=== PATIENT | male | born 1970 | race African-American/Black ===

== ENCOUNTER 2018-02-05 15:10 | Inpatient (IN) | payer MEDICAID, OTHER ==
[~2018-02-05] VITALS: Ht 188 cm; Wt 103.3 kg
[2018-02-05] MEDS ORDERED: cloNIDine HCL 0.1 MG TAB PO ONE (15:30)
[2018-02-05] MEDS ORDERED: SODIUM CHLORIDE 0.9% 1,000 ML IV ONE ×2 (15:54→16:15)
[2018-02-05 16:18] LABS: Basophils # (auto) 0.1 uL; Basophils % (auto) 0.6 % (0.0-2.0); Eosinophils # (auto) 0.1 uL; Eosinophils % (auto) 0.6 % (0.0-7.0); Hematocrit 43.8 % (41.0-53.0); Hemoglobin 14.6 g/dL (13.5-17.5); Lymphocytes # (auto) 1.9 uL; Lymphocytes % (auto) 15.3 % (10.0-50.0); Mean Corpuscular Hemoglobin 30.6 pg (28.0-32.0); Mean Corpuscular Hgb Conc. 33.4 g/dL (32.0-36.0); Mean Corpuscular Volume 91.7 fL (80.0-100.0); Monocytes # (auto) 0.6 uL; Monocytes % (auto) 5.1 % (0.0-12.0); Neutrophils # (auto) 9.7 uL; Neutrophils % (auto) 78.4 % (37.0-80.0); Platelet Count (auto) 244 10^3/uL (140-450); Red Blood Cells 4.77 10^6/uL (4.5-5.90); Red Cell Distribution Width 14.9 % (11.8-14.3); White Blood Cell 12.4 10^3/uL (4.4-10.8)
[2018-02-05 16:45] LABS: Albumin 3.3 g/dL (3.4-5.0); BUN/Creatinine Ratio 16.1; Bilirubin, Total 1.8 mg/dL (0.2-1.0); Calcium 8.2 mg/dL (8.5-10.1); Potassium 3.3 mmol/L (3.5-5.1)
[2018-02-05] MEDS ORDERED: LABETALOL HCL 5 MG/ML ML 20ML VIAL IV ONE ×4 (17:45→22:00)
[2018-02-05] MEDS ORDERED: FUROSEMIDE 40 MG/4 ML VIAL IV ONE (18:15)
[2018-02-05] MEDS ORDERED: SPIRONOLACTONE 25 MG TAB PO ONE (18:15)
[2018-02-05] MEDS ORDERED: MORPHINE SULF INJ 2 MG/ML SYRINGE 1ML IV PRN ×2 (19:00)
[2018-02-05] MEDS ORDERED: LACTULOSE 20Gm/30ML SOLN PO PRN (19:00)
[2018-02-05] MEDS ORDERED: LORazepam 0.5 MG TAB PO PRN (19:00)
[2018-02-05] MEDS: FUROSEMIDE 40 MG/4 ML VIAL IV SCH (19:00)
[2018-02-05] MEDS ORDERED: HYDROcodone-ACET 5/325MG TAB PO PRN (19:00)
[2018-02-05] MEDS ORDERED: PROMETHAZINE HCL 25 MG/ML 1ML IV PRN (19:00)
[2018-02-05] MEDS ORDERED: ACETAMINOPHEN 500 MG TAB PO PRN (19:00)
[2018-02-05] MEDS ORDERED: TEMAZEPAM 15 MG CAP PO PRN (19:00)
[2018-02-05] MEDS ORDERED: NITROGLYCERIN 50MG/250ML 250 ML IV SCH (20:15)
[2018-02-05] MEDS: POTASSIUM CHL 20 Meq TABLET PO SCH (20:25)
[2018-02-05] MEDS: ATORVASTATIN 20 MG TAB PO SCH (22:14)
[2018-02-05] MEDS: CARVEDILOL 3.125 MG TAB PO SCH (22:15)
[2018-02-05] MEDS: SODIUM CHLOR 0.9% PF (SALINE LOCK) 10ML VIAL/SYR IV SCH (22:17)
[2018-02-05] MEDS ORDERED: cloNIDine HCL 0.1 MG TAB PO PRN (23:30)
[2018-02-06] VITALS (7 sets, daily range): BP systolic 120–148; BP diastolic 85–107
[2018-02-06] MEDS ORDERED: FURO20TA PO (02:14)
[2018-02-06] MEDS ORDERED: ASPI81TA27 PO (02:14)
[2018-02-06] MEDS ORDERED: ENAL2.5T PO (02:14)
[2018-02-06 06:27] LABS: Basophils # (auto) 0 uL; Basophils % (auto) 0.4 % (0.0-2.0); Eosinophils # (auto) 0 uL; Eosinophils % (auto) 0.4 % (0.0-7.0); Hematocrit 40.1 % (41.0-53.0); Hemoglobin 13.8 g/dL (13.5-17.5); Lymphocytes # (auto) 1.4 uL; Lymphocytes % (auto) 12.5 % (10.0-50.0); Mean Corpuscular Hemoglobin 31.6 pg (28.0-32.0); Mean Corpuscular Hgb Conc. 34.5 g/dL (32.0-36.0); Mean Corpuscular Volume 91.5 fL (80.0-100.0); Monocytes # (auto) 0.5 uL; Neutrophils # (auto) 8.9 uL; Neutrophils % (auto) 81.7 % (37.0-80.0); Nucleated Red Blood Cells % 0.1 %; Platelet Count (auto) 215 10^3/uL (140-450); Red Blood Cells 4.38 10^6/uL (4.5-5.90); Red Cell Distribution Width 14.8 % (11.8-14.3); White Blood Cell 10.9 10^3/uL (4.4-10.8)
[2018-02-06] MEDS: SODIUM CHLOR 0.9% PF (SALINE LOCK) 10ML VIAL/SYR IV SCH ×3 (06:39→22:07)
[2018-02-06 06:44] LABS: Potassium 3.3 mmol/L (3.5-5.1)
[2018-02-06 06:51] LABS: Albumin 2.8 g/dL (3.4-5.0); BUN/Creatinine Ratio 15.1; Calcium 8.2 mg/dL (8.5-10.1)
[2018-02-06 06:54] LABS: Bilirubin, Total 1.7 mg/dL (0.2-1.0); Total Protein 6.8 g/dL (6.4-8.2)
[2018-02-06] MEDS ORDERED: ENALAPRIL MALEATE 2.5 MG TAB PO SCH ×2 (10:00→22:00)
[2018-02-06] MEDS ORDERED: NITROGLYCERIN 0.2MG/HR TOPICAL PATCH TD SCH (10:00)
[2018-02-06] MEDS: FUROSEMIDE 40 MG/4 ML VIAL IV SCH (10:51)
[2018-02-06] MEDS: PANTOPRAZOLE 40 MG TAB PO SCH (10:51)
[2018-02-06] MEDS: CARVEDILOL 3.125 MG TAB PO SCH ×2 (10:52→22:10)
[2018-02-06] MEDS: POTASSIUM CHL 20 Meq TABLET PO SCH (10:52)
[2018-02-06] MEDS: ASPirin 81 mg TAB PO SCH (10:52)
[2018-02-06] MEDS: ENOXAPARIN SOD 40 MG/0.4 ML SYRINGE SC SCH (10:53)
[2018-02-06 14:11] LABS: Urine Bacteria FEW /hpf (None Seen); Urine Blood Negative /uL (Negative); Urine Mucus FEW (None Seen); Urine WBC 1 /hpf (0 - 3)
[2018-02-06 14:14] LABS: Amphetamine Screen, Urine NEGATIVE (NEGATIVE); Barbiturate Scree,Urine NEGATIVE (NEGATIVE); Benzodiazephine Screen, Urine NEGATIVE (NEGATIVE); Cannabinoid Screen, Urine POSITIVE (NEGATIVE); Cocaine Screen, Urine NEGATIVE (NEGATIVE)
[2018-02-06 14:21] LABS: Alcohol, Urine < 3.0 mg/dL (0-5); Opiate Scree,Urine NEGATIVE (NEGATIVE); Phencyclidine Screen, Urine NEGATIVE (NEGATIVE)
[2018-02-06] MEDS ORDERED: hydrALAZINE HCL 25 MG TAB PO ONE (14:30)
[2018-02-06] MEDS ORDERED: ISOSORBIDE DINITRATE 10 MG TAB PO ONE (14:30)
[2018-02-06] MEDS: NITROGLYCERIN 0.4 MG SL TAB SL PRN ×3 (18:13→18:25)
[2018-02-06] MEDS: SPIRONOLACTONE 25 MG TAB PO SCH (18:25)
[2018-02-06] MEDS ORDERED: LORazepam 0.5 MG TAB PO ONE (20:15)
[2018-02-06] MEDS: ISOSORBIDE DINITRATE 10 MG TAB PO SCH (22:09)
[2018-02-06] MEDS: hydrALAZINE HCL 25 MG TAB PO SCH (22:10)
[2018-02-06] MEDS: ATORVASTATIN 20 MG TAB PO SCH (22:12)
[2018-02-07 05:00] VITALS: BP 139/96
[2018-02-07] MEDS: SPIRONOLACTONE 25 MG TAB PO SCH ×2 (05:33→18:46)
[2018-02-07] MEDS: SODIUM CHLOR 0.9% PF (SALINE LOCK) 10ML VIAL/SYR IV SCH ×3 (05:33→20:21)
[2018-02-07 06:36] LABS: Potassium 3.1 mmol/L (3.5-5.1)
[2018-02-07 06:40] LABS: BUN/Creatinine Ratio 17.9
[2018-02-07 07:32] LABS: INR 1.15 (0.9-1.15); Partial Thromboplastin Time 26.1 sec (23.78-33.04); Prothrombin Time 12.2 sec (9.27-12.13)
[2018-02-07] MEDS ORDERED: ADENOSINE 105 MG in GIVE UN-DILUTED 0 ML IV ONE (08:15)
[2018-02-07 09:07] VITALS: BP 147/109
[2018-02-07] MEDS: ISOSORBIDE DINITRATE 10 MG TAB PO SCH ×2 (10:33→21:22)
[2018-02-07] MEDS: ASPirin 81 mg TAB PO SCH (10:33)
[2018-02-07] MEDS: hydrALAZINE HCL 25 MG TAB PO SCH ×2 (10:34→21:21)
[2018-02-07] MEDS: PANTOPRAZOLE 40 MG TAB PO SCH (10:34)
[2018-02-07] MEDS: POTASSIUM CHL 20 Meq TABLET PO SCH (10:34)
[2018-02-07] MEDS: ENOXAPARIN SOD 40 MG/0.4 ML SYRINGE SC SCH (10:35)
[2018-02-07] MEDS: CARVEDILOL 3.125 MG TAB PO SCH ×2 (10:35→21:24)
[2018-02-07 10:44] VITALS: BP 139/103
[2018-02-07] MEDS: FUROSEMIDE 40 MG/4 ML VIAL IV SCH (12:19)
[2018-02-07 13:00] VITALS: BP 133/93
[2018-02-07 17:00] VITALS: BP 119/73
[2018-02-07] MEDS: ATORVASTATIN 20 MG TAB PO SCH (21:22)
[2018-02-07 21:59] VITALS: BP 130/79
[2018-02-08] MEDS ORDERED: SODIUM CHLORIDE 0.9% 1,000 ML IV SCH
[2018-02-08 05:00] VITALS: BP 132/86
[2018-02-08] MEDS: SPIRONOLACTONE 25 MG TAB PO SCH ×2 (06:00→17:56)
[2018-02-08] MEDS: SODIUM CHLOR 0.9% PF (SALINE LOCK) 10ML VIAL/SYR IV SCH ×3 (06:00→21:51)
[2018-02-08 06:03] LABS: BUN/Creatinine Ratio 16.7; Calcium 8.2 mg/dL (8.5-10.1); Potassium 3.2 mmol/L (3.5-5.1)
[2018-02-08 09:00] VITALS: BP 133/93
[2018-02-08] MEDS: POTASSIUM CHL 20 Meq TABLET PO SCH (10:02)
[2018-02-08] MEDS: PANTOPRAZOLE 40 MG TAB PO SCH (10:02)
[2018-02-08] MEDS: ENOXAPARIN SOD 40 MG/0.4 ML SYRINGE SC SCH (10:02)
[2018-02-08] MEDS: FUROSEMIDE 40 MG/4 ML VIAL IV SCH (10:02)
[2018-02-08] MEDS: ISOSORBIDE DINITRATE 10 MG TAB PO SCH ×2 (10:03→21:50)
[2018-02-08] MEDS: ASPirin 81 mg TAB PO SCH (10:03)
[2018-02-08] MEDS: hydrALAZINE HCL 25 MG TAB PO SCH ×2 (10:03→21:50)
[2018-02-08] MEDS: CARVEDILOL 3.125 MG TAB PO SCH ×2 (10:04→21:49)
[2018-02-08 13:00] VITALS: BP 109/65
[2018-02-08] MEDS ORDERED: POTASSIUM CHL 10 Meq TABLET PO ONE (15:15)
[2018-02-08 17:00] VITALS: BP 126/86
[2018-02-08 20:00] VITALS: BP 155/74
[2018-02-08] MEDS: ATORVASTATIN 20 MG TAB PO SCH (21:50)
[2018-02-08 22:00] VITALS: BP 155/74
[2018-02-09] VITALS (7 sets, daily range): BP systolic 109–134; BP diastolic 64–99
[2018-02-09] MEDS: SODIUM CHLOR 0.9% PF (SALINE LOCK) 10ML VIAL/SYR IV SCH ×3 (05:52→22:03)
[2018-02-09] MEDS: SPIRONOLACTONE 25 MG TAB PO SCH ×2 (05:52→17:48)
[2018-02-09 06:38] LABS: Basophils # (auto) 0.1 uL; Basophils % (auto) 0.6 % (0.0-2.0); Eosinophils # (auto) 0.1 uL; Eosinophils % (auto) 1.2 % (0.0-7.0); Hematocrit 41.7 % (41.0-53.0); Lymphocytes # (auto) 1.6 uL; Lymphocytes % (auto) 13.9 % (10.0-50.0); Mean Corpuscular Hemoglobin 30.5 pg (28.0-32.0); Mean Corpuscular Hgb Conc. 33.5 g/dL (32.0-36.0); Mean Corpuscular Volume 90.8 fL (80.0-100.0); Monocytes % (auto) 9.2 % (0.0-12.0); Neutrophils # (auto) 8.5 uL; Neutrophils % (auto) 75.1 % (37.0-80.0); Nucleated Red Blood Cells % 0.1 %; Platelet Count (auto) 249 10^3/uL (140-450); Red Blood Cells 4.59 10^6/uL (4.5-5.90); Red Cell Distribution Width 14.7 % (11.8-14.3); White Blood Cell 11.3 10^3/uL (4.4-10.8)
[2018-02-09] MEDS: FUROSEMIDE 40 MG/4 ML VIAL IV SCH (09:12)
[2018-02-09] MEDS: CARVEDILOL 3.125 MG TAB PO SCH ×2 (09:13→22:02)
[2018-02-09] MEDS: ASPirin 81 mg TAB PO SCH (09:13)
[2018-02-09] MEDS: POTASSIUM CHL 20 Meq TABLET PO SCH (09:13)
[2018-02-09] MEDS: ISOSORBIDE DINITRATE 10 MG TAB PO SCH ×2 (09:13→22:02)
[2018-02-09] MEDS: PANTOPRAZOLE 40 MG TAB PO SCH (09:13)
[2018-02-09] MEDS: hydrALAZINE HCL 25 MG TAB PO SCH ×2 (09:14→22:03)
[2018-02-09] MEDS ORDERED: POTASSIUM CHL 10 Meq TABLET PO ONE (18:30)
[2018-02-09] MEDS: ATORVASTATIN 20 MG TAB PO SCH (22:03)
[2018-02-10] MEDS: SODIUM CHLOR 0.9% PF (SALINE LOCK) 10ML VIAL/SYR IV SCH ×3 (06:00→22:04)
[2018-02-10] MEDS: SPIRONOLACTONE 25 MG TAB PO SCH ×2 (06:00→17:29)
[2018-02-10 06:03] VITALS: BP 110/73
[2018-02-10 08:30] VITALS: BP 138/92
[2018-02-10 09:00] VITALS: BP 138/92
[2018-02-10 09:00] LABS: INR 1.07 (0.9-1.15); Partial Thromboplastin Time 26.3 sec (23.78-33.04); Prothrombin Time 11.4 sec (9.27-12.13)
[2018-02-10] MEDS: hydrALAZINE HCL 25 MG TAB PO SCH ×2 (10:00→22:03)
[2018-02-10] MEDS: CARVEDILOL 3.125 MG TAB PO SCH ×2 (10:00→22:04)
[2018-02-10] MEDS: ASPirin 81 mg TAB PO SCH (10:00)
[2018-02-10] MEDS: PANTOPRAZOLE 40 MG TAB PO SCH ×2 (10:00→17:28)
[2018-02-10] MEDS: ISOSORBIDE DINITRATE 10 MG TAB PO SCH ×2 (10:00→22:03)
[2018-02-10] MEDS ORDERED: IODIXANOL 320MG/ML 100ML BTL IV ONE (11:30)
[2018-02-10] MEDS ORDERED: LIDOCAINE 2% (LOCAL ANESTH.) PF 5ml SDV ONE (11:30)
[2018-02-10] MEDS ORDERED: MIDAZOLAM HCL 1MG/1ML-2 ML VIAL ONE (13:12)
[2018-02-10] MEDS ORDERED: SODIUM CHL 0.9% 0 ML ONE (13:12)
[2018-02-10] MEDS ORDERED: fentaNYL CITRATE 100 MCG/2 ML VL ONE (13:12)
[2018-02-10] MEDS ORDERED: ANGIOMAX 250 MG VIAL IV ONE (13:15)
[2018-02-10] MEDS ORDERED: hydrALAZINE HCL 20 MG/ML VL ONE (13:36)
[2018-02-10] MEDS ORDERED: POTA20TA53 PO (14:58)
[2018-02-10] MEDS ORDERED: FURO40TA4 PO (14:58)
[2018-02-10] MEDS ORDERED: ISOS10TA2 PO (14:58)
[2018-02-10] MEDS ORDERED: ATOR20TA50 PO (14:58)
[2018-02-10] MEDS ORDERED: PANT40T PO (14:58)
[2018-02-10] MEDS ORDERED: CAR3125T PO (14:58)
[2018-02-10] MEDS ORDERED: HYDR-4296 PO (14:58)
[2018-02-10] MEDS ORDERED: SPIR25TA88 PO (14:58)
[2018-02-10] MEDS: FUROSEMIDE 40 MG/4 ML VIAL IV SCH (15:22)
[2018-02-10 16:53] VITALS: BP 145/98
[2018-02-10] MEDS: POTASSIUM CHL 20 Meq TABLET PO SCH (17:28)
[2018-02-10 20:00] VITALS: BP 145/82
[2018-02-10 21:33] VITALS: BP 145/82
[2018-02-10] MEDS: ATORVASTATIN 20 MG TAB PO SCH (22:03)
[2018-02-11] VITALS (8 sets, daily range): BP systolic 120–141; BP diastolic 71–94
[2018-02-11] MEDS: SODIUM CHLOR 0.9% PF (SALINE LOCK) 10ML VIAL/SYR IV SCH ×3 (06:02→21:48)
[2018-02-11] MEDS: SPIRONOLACTONE 25 MG TAB PO SCH ×2 (06:03→17:07)
[2018-02-11 06:15] LABS: BUN/Creatinine Ratio 15.2; Calcium 8.6 mg/dL (8.5-10.1); Potassium 3.4 mmol/L (3.5-5.1)
[2018-02-11] MEDS: ISOSORBIDE DINITRATE 10 MG TAB PO SCH ×2 (10:00→21:47)
[2018-02-11] MEDS: POTASSIUM CHL 20 Meq TABLET PO SCH (10:00)
[2018-02-11] MEDS: FUROSEMIDE 40 MG/4 ML VIAL IV SCH (10:00)
[2018-02-11] MEDS: PANTOPRAZOLE 40 MG TAB PO SCH (10:00)
[2018-02-11] MEDS: hydrALAZINE HCL 25 MG TAB PO SCH ×2 (10:00→21:47)
[2018-02-11] MEDS: CARVEDILOL 3.125 MG TAB PO SCH ×2 (10:00→21:47)
[2018-02-11] MEDS: ASPirin 81 mg TAB PO SCH (10:00)
[2018-02-11] MEDS: ATORVASTATIN 20 MG TAB PO SCH (21:46)
[2018-02-12] VITALS (7 sets, daily range): BP systolic 108–141; BP diastolic 71–94
[2018-02-12] MEDS: SODIUM CHLOR 0.9% PF (SALINE LOCK) 10ML VIAL/SYR IV SCH ×2 (06:00→14:45)
[2018-02-12] MEDS: SPIRONOLACTONE 25 MG TAB PO SCH ×2 (06:01→17:36)
[2018-02-12] MEDS: FUROSEMIDE 40 MG/4 ML VIAL IV SCH (09:43)
[2018-02-12] MEDS: ISOSORBIDE DINITRATE 10 MG TAB PO SCH (09:44)
[2018-02-12] MEDS: hydrALAZINE HCL 25 MG TAB PO SCH (09:45)
[2018-02-12] MEDS: PANTOPRAZOLE 40 MG TAB PO SCH (09:45)
[2018-02-12] MEDS: ASPirin 81 mg TAB PO SCH (09:45)
[2018-02-12] MEDS: POTASSIUM CHL 20 Meq TABLET PO SCH (09:45)
[2018-02-12] MEDS: CARVEDILOL 3.125 MG TAB PO SCH (09:45)
[2018-02-12 11:59] LABS: Calcium 8.4 mg/dL (8.5-10.1); Potassium 3.4 mmol/L (3.5-5.1)
[2018-02-12] MEDS ORDERED: POTASSIUM CHL 10 Meq TABLET PO ONE (13:15)
== END 2018-02-12 21:25 | disposition home or self-care (01) | DRG 192 ==
LOC: EDBD 15:10 → ER 15:16 → TELE 15:17 → TELE-WESTW 23:25
PROVIDERS: ADMIT Internal Medicine; ATTEND Internal Medicine
PROC: 4A023N7 Measurement of Cardiac Sampling and Pressure, Left Heart, Percutaneous Approach (ICD-10-PCS; principal; 2018-02-10)
PROC: B2151ZZ Fluoroscopy of Left Heart using Low Osmolar Contrast (ICD-10-PCS; 2018-02-10)
PROC: B2111ZZ Fluoroscopy of Multiple Coronary Arteries using Low Osmolar Contrast (ICD-10-PCS; 2018-02-10)
DX: I13.0 Hypertensive heart and chronic kidney disease with heart failure and stage 1 through stage 4 chronic kidney disease, or unspecified chronic kidney disease (principal); I21.A1 Myocardial infarction type 2; I42.9 Cardiomyopathy, unspecified; N18.3 Chronic kidney disease, stage 3 (moderate); E44.1 Mild protein-calorie malnutrition; I50.43 Acute on chronic combined systolic (congestive) and diastolic (congestive) heart failure; E87.6 Hypokalemia; I16.1 Hypertensive emergency; I50.82 Biventricular heart failure; Z68.29 Body mass index [BMI] 29.0-29.9, adult; E66.9 Obesity, unspecified; F12.10 Cannabis abuse, uncomplicated; I16.0 Hypertensive urgency; I49.9 Cardiac arrhythmia, unspecified; Z87.891 Personal history of nicotine dependence; Z91.19 Patient's noncompliance with other medical treatment and regimen
CPT/HCPCS: 36415; 71045; 78452; 80048; 80053; 80061; 80307; 81001; 82550; 83735; 83880; 84132; 84443; 84484; 85025; 85610; 85652; 85730; 86141; 86850; 86900; 86901; 93017; 93306; 93458; 93971; 96361; 96374; 96375; 96376; 99152; A6257; J0153; J2001; J2250; Q9967

== ENCOUNTER 2018-10-13 12:52 | Inpatient (IN) | payer OTHER ==
[~2018-10-13] VITALS: Ht 182.9 cm; Wt 107.3 kg
[~2018-10-13 12:52] MED LIST: ASPI81TA27 PO; ATOR20TA50 PO; CAR3125T PO; ENAL2.5T PO; FURO20TA PO; FURO40TA4 PO; HYDR-4296 PO; ISOS10TA2 PO; PANT40T PO; POTA20TA53 PO; SPIR25TA88 PO
[2018-10-13 13:45] LABS: Basophils # (auto) 0 uL; Basophils % (auto) 0.3 % (0.0-2.0); Eosinophils # (auto) 0 uL; Eosinophils % (auto) 0.2 % (0.0-7.0); Hematocrit 44.9 % (41.0-53.0); Hemoglobin 15.3 g/dL (13.5-17.5); Lymphocytes # (auto) 1.2 uL; Lymphocytes % (auto) 8.8 % (10.0-50.0); Mean Corpuscular Hemoglobin 32.1 pg (28.0-32.0); Mean Corpuscular Hgb Conc. 34.1 g/dL (32.0-36.0); Mean Corpuscular Volume 94.1 fL (80.0-100.0); Monocytes # (auto) 0.5 uL; Neutrophils # (auto) 11.9 uL; Neutrophils % (auto) 86.7 % (37.0-80.0); Nucleated Red Blood Cells % 0.1 %; Platelet Count (auto) 271 10^3/uL (140-450); Red Blood Cells 4.77 10^6/uL (4.5-5.90); Red Cell Distribution Width 13.6 % (11.8-14.3); White Blood Cell 13.7 10^3/uL (4.4-10.8)
[2018-10-13 13:48] LABS: Urine Bacteria NONE SEEN /hpf (None Seen); Urine Blood TRACE /uL (Negative); Urine Specific Gravity 1.015 (1.001-1.035); Urine WBC 10 /hpf (0 - 3)
[2018-10-13 14:03] LABS: Magnesium 1.9 mg/dL (1.6-2.6)
[2018-10-13 14:06] LABS: BUN/Creatinine Ratio 11.4
[2018-10-13 14:09] LABS: Bilirubin, Total 0.5 mg/dL (0.2-1.0); Total Protein 8.8 g/dL (6.4-8.2)
[2018-10-13] MEDS ORDERED: PROCHLORPERAZINE EDISYLATE 5 MG/ML 2ML VIAL IV ONE (14:15)
[2018-10-13] MEDS ORDERED: ENALAPRILAT 1.25 MG/ML-1ML VIAL IV ONE (14:45)
[2018-10-13] MEDS ORDERED: ACETAMINOPHEN 500 MG TAB PO PRN (14:45)
[2018-10-13] MEDS ORDERED: MORPHINE SULF INJ 2 MG/ML SYRINGE 1ML IV PRN ×2 (14:45)
[2018-10-13] MEDS ORDERED: NITROGLYCERIN 0.4 MG SL TAB SL PRN (14:45)
[2018-10-13] MEDS ORDERED: CARVEDILOL 3.125 MG TAB PO ONE (14:45)
[2018-10-13] MEDS ORDERED: POTASSIUM EFFERVESENT TAB 25 MEQ PO ONE (15:00)
[2018-10-13 15:24] LABS: Alcohol, Urine < 3.0 mg/dL (0-5); Amphetamine Screen, Urine NEGATIVE (NEGATIVE); Barbiturate Scree,Urine NEGATIVE (NEGATIVE); Benzodiazephine Screen, Urine NEGATIVE (NEGATIVE); Cannabinoid Screen, Urine POSITIVE (NEGATIVE); Cocaine Screen, Urine NEGATIVE (NEGATIVE); Opiate Scree,Urine NEGATIVE (NEGATIVE); Phencyclidine Screen, Urine NEGATIVE (NEGATIVE)
--- NOTE | 2018-10-13 16:00 | NUR ---
ASSUMED CARE OF PATIENT PATIENT AWAKE, ALERT, AND ORIENTED X4; TELE # 15 IN NSR 93 BPM. RESPIRATIONS EVEN AND UNLABORED. NO S/S OF DISTRESS OR SOB, DENIES PAIN AT THIS TIME. PATIENT IS FATIGUED. AT BEDSIDE. ORIENTED PATIENT AND FAMILY TO ROOM, UNIT, POLICIES, AND PROCEDURES. PATIENT AND FAMILY VERBALIZED UNDERSTANDING. BED IS IN LOWEST POSITION, SIDE RAILS UP X2, AND CALL LIGHT WITHIN REACH. WILL CONTINUE TO MONITOR Q1 HOUR AND PRN.
[2018-10-13 16:03] VITALS: BP 179/95
[2018-10-13] MEDS: metroNIDAZOLE 500MG/100ML 100 ML IV SCH ×2 (17:13→20:38)
[2018-10-13] MEDS: SPIRONOLACTONE 25 MG TAB PO SCH (18:36)
--- NOTE | 2018-10-13 18:47 | NUR ---
END OF SHIFT PATIENT RESTING IN BED. NO S/S OF DISTRESS, SOB, OR PAIN. BED IS IN LOWEST POSITION, SIDE RAILS UP X2, AND CALL LIGHT WITHIN REACH. WILL ENDORSE CARE TO [employer]LECT[employer] MECHANIC TO R.N
--- NOTE | 2018-10-13 19:30 | NUR ---
RECEIVED PATIENT IN BED, AAOX4. FAMILY IS IN THE ROOM. PATIENT IS VERY ANXIOUS, RESTLESS. NO DISTRESS NOTED. AFEBRILE. DENIES ANY PAIN NOW. NO NAUSEA/ VOMITING NOTED. POCS DISCUSSED WITH PATIENT AND FAMILY AND SHOWED UNDERSTANDING. BED KEPT ON LOWEST POSITION. SIDE RAILS UP. CALL LIGHT/TABLE IN REACH. KEPT COMFORTABLE.
--- NOTE | 2018-10-13 20:00 | NUR ---
DOMINICK SMITH, RE: SLEEPING PILL. AWAITING CALL BACK.
[2018-10-13] MEDS ORDERED: TEMAZEPAM 15 MG CAP PO ONE (20:30)
[2018-10-13] MEDS: cloNIDine HCL 0.1 MG TAB PO PRN (20:38)
[2018-10-13] MEDS: CARVEDILOL 12.5 MG TAB PO SCH (20:39)
[2018-10-13] MEDS: ENALAPRIL MALEATE 10 MG TAB PO SCH (20:40)
[2018-10-13] MEDS: ATORVASTATIN 20 MG TAB PO SCH (20:40)
[2018-10-13 22:00] VITALS: BP 165/80
[2018-10-13] MEDS ORDERED: CARVEDILOL 3.125 MG TAB PO SCH (22:00)
[2018-10-13 23:27] VITALS: BP 117/85
[2018-10-14] MEDS: metroNIDAZOLE 500MG/100ML 100 ML IV SCH ×4 (02:17→22:26)
[2018-10-14] MEDS: HYDROcodone-ACET 5/325MG TAB PO PRN (03:00)
[2018-10-14 05:16] VITALS: BP 167/99
[2018-10-14] MEDS: SPIRONOLACTONE 25 MG TAB PO SCH ×2 (05:26→18:11)
[2018-10-14] MEDS: cloNIDine HCL 0.1 MG TAB PO PRN (05:27)
[2018-10-14 06:08] LABS: Basophils # (auto) 0 uL; Basophils % (auto) 0.2 % (0.0-2.0); Eosinophils # (auto) 0 uL; Hematocrit 49.8 % (41.0-53.0); Lymphocytes % (auto) 4.6 % (10.0-50.0); Mean Corpuscular Hemoglobin 31.8 pg (28.0-32.0); Mean Corpuscular Hgb Conc. 34.2 g/dL (32.0-36.0); Mean Corpuscular Volume 93.1 fL (80.0-100.0); Monocytes # (auto) 0.9 uL; Neutrophils # (auto) 19.8 uL; Neutrophils % (auto) 91.2 % (37.0-80.0); Nucleated Red Blood Cells % 0.1 %; Platelet Count (auto) 326 10^3/uL (140-450); Red Blood Cells 5.36 10^6/uL (4.5-5.90); Red Cell Distribution Width 13.4 % (11.8-14.3); White Blood Cell 21.8 10^3/uL (4.4-10.8)
[2018-10-14 06:11] VITALS: BP 148/72
--- NOTE | 2018-10-14 06:12 | NUR ---
ON BED, ASLEEP. STABLE. NO DISTRESS NOTED. FOR MORE CARE AND MANAGEMENT.
[2018-10-14 06:24] LABS: INR 0.96 (0.9-1.15); Partial Thromboplastin Time 27.2 sec (23.78-33.04); Prothrombin Time 10.3 sec (9.27-12.13)
[2018-10-14 06:26] LABS: BUN/Creatinine Ratio 14.7; Calcium 9.7 mg/dL (8.5-10.1); Magnesium 2.1 mg/dL (1.6-2.6)
--- NOTE | 2018-10-14 07:20 | NUR ---
Opening Shift Note Assumed care of patient, awake and alert. No S/S of distress/SOB or pain. Instructed on POC-continue IV antibiotics, clear liquid diet, ECHO and await for cardiology input for further management. Patient informed to call for assist PRN, will continue to monitor for changes Q1hr and PRN.
[2018-10-14 08:30] VITALS: BP 140/96
[2018-10-14] MEDS ORDERED: ENALAPRIL MALEATE 10 MG TAB PO SCH (10:00)
[2018-10-14] MEDS: CARVEDILOL 12.5 MG TAB PO SCH ×2 (10:22→22:27)
[2018-10-14] MEDS: PANTOPRAZOLE 40 MG TAB PO SCH (10:23)
[2018-10-14] MEDS: POTASSIUM CHL 20 Meq TABLET PO SCH (10:23)
[2018-10-14] MEDS: ASPirin-EC 81 mg tab PO SCH (10:23)
[2018-10-14] MEDS: ENALAPRIL MALEATE 10 MG TAB PO SCH ×2 (10:24→22:27)
[2018-10-14] MEDS ORDERED: cefTRIAXone 1GM/50ML D5W 50 ML IV ONE (12:45)
[2018-10-14 12:46] VITALS: BP 135/89
--- NOTE | 2018-10-14 13:23 | NUR ---
Reported to Dr. Monique regarding patient having non-pitting edema on left foot only. MD stated she will review.
[2018-10-14] MEDS ORDERED: TEMAZEPAM 15 MG CAP PO PRN (13:45)
[2018-10-14 16:46] VITALS: BP 128/77
--- NOTE | 2018-10-14 18:58 | NUR ---
Closing Note Patient is resting in bed, no signs of chest pain, distress or SOB. Swelling on left foot has gone down. Patient is now on full liquid diet as ordered, encouraged to take in meal provided. Call light within reach and bed in lowest position.
[2018-10-14] MEDS: ATORVASTATIN 20 MG TAB PO SCH (22:27)
[2018-10-15 00:56] VITALS: BP 134/89
[2018-10-15] MEDS: metroNIDAZOLE 500MG/100ML 100 ML IV SCH ×3 (03:43→21:25)
[2018-10-15] MEDS: ONDANSETRON HCL 4 MG/2 ML VIAL IV PRN ×2 (04:33→12:29)
[2018-10-15 04:34] VITALS: BP 121/73
--- NOTE | 2018-10-15 04:45 | NUR ---
IV insertion/removal IV access obtained, via clean sterile technique by inserting 22 gauge catheter at RIGHT WRIST after 3 attempt(s). IV secured properly. No trauma to site. Patient tolerated well. IV removal LEFT HAND IV LEAKING, PT C/O PAIN/SWELLING. IV DC'd with clean sterile technique, catheter fully intact. Pressure dressing applied to site. Patient tolerated well.
[2018-10-15] MEDS: SPIRONOLACTONE 25 MG TAB PO SCH (06:00)
--- NOTE | 2018-10-15 06:01 | NUR ---
PATIENT'S CALLED UPDATED ON PATIENT'S POC, ALL QUESTIONS/CONCERNS ADDRESSED.
[2018-10-15 06:15] LABS: Basophils # (auto) 0 uL; Basophils % (auto) 0.2 % (0.0-2.0); Eosinophils # (auto) 0 uL; Eosinophils % (auto) 0.1 % (0.0-7.0); Hematocrit 46.8 % (41.0-53.0); Hemoglobin 15.8 g/dL (13.5-17.5); Lymphocytes # (auto) 1.7 uL; Lymphocytes % (auto) 9.7 % (10.0-50.0); Mean Corpuscular Hemoglobin 31.6 pg (28.0-32.0); Mean Corpuscular Hgb Conc. 33.8 g/dL (32.0-36.0); Mean Corpuscular Volume 93.5 fL (80.0-100.0); Monocytes # (auto) 1.1 uL; Monocytes % (auto) 6.2 % (0.0-12.0); Neutrophils # (auto) 14.6 uL; Neutrophils % (auto) 83.8 % (37.0-80.0); Nucleated Red Blood Cells % 0.1 %; Platelet Count (auto) 281 10^3/uL (140-450); Red Blood Cells 5.01 10^6/uL (4.5-5.90); Red Cell Distribution Width 13.8 % (11.8-14.3); White Blood Cell 17.4 10^3/uL (4.4-10.8)
[2018-10-15 06:21] LABS: Potassium 3.6 mmol/L (3.5-5.1)
[2018-10-15 06:28] LABS: BUN/Creatinine Ratio 21.6; Calcium 8.9 mg/dL (8.5-10.1)
--- NOTE | 2018-10-15 06:30 | NUR ---
PT C/O NAUSEA PATIENT C/O NAUSEA, ZOFRAN ALREADY GIVEN AT 0433, PT STATES "IT DIDN'T HELP MUCH." NEXT DOSE NOT DUE AT THIS TIME. PATIENT REFUSING ALDACTONE MEDICATION DUE TO NAUSEA. EDUCATED PT ON IMPORTANCE OF MEDICATION AND RIGHT TO REFUSAL, PT VERBALIZED UNDERSTANDING, REFUSING MEDICATION AT THIS TIME. NO EPISODE OF VOMITING. VITAL SIGNS STABLE, PATIENT LAYING IN BED, NO S/S DISTRESS. WILL CONTINUE TO MONITOR.
--- NOTE | 2018-10-15 07:07 | NUR ---
Closing Shift Note Endorsed care to day shift MATTHEW Ruano. Pt resting in bed, no s/s distress.
--- NOTE | 2018-10-15 07:23 | NUR ---
Opening Shift Note Assumed care of patient, awake and alert. No S/S of distress/SOB or abdominal pain. Patient reported nausea. Medication is not yet due at this time. Instructed on POC-continue IV antibiotics, full liquid diet per order. Patient informed to call for assist PRN, will continue to monitor for changes Q1hr and PRN.
[2018-10-15] MEDS: cefTRIAXone 1GM/50ML D5W 50 ML IV SCH (08:27)
[2018-10-15 08:31] VITALS: BP 146/90
[2018-10-15] MEDS: ASPirin-EC 81 mg tab PO SCH (09:25)
[2018-10-15] MEDS: POTASSIUM CHL 20 Meq TABLET PO SCH (09:25)
[2018-10-15] MEDS: CARVEDILOL 12.5 MG TAB PO SCH ×2 (09:25→21:24)
[2018-10-15] MEDS: PANTOPRAZOLE 40 MG TAB PO SCH (09:25)
[2018-10-15] MEDS: ENALAPRIL MALEATE 10 MG TAB PO SCH (09:26)
[2018-10-15] MEDS: HYDROcodone-ACET 5/325MG TAB PO PRN (12:29)
[2018-10-15 13:12] VITALS: BP 152/98
[2018-10-15 17:12] VITALS: BP 135/88
--- NOTE | 2018-10-15 19:00 | NUR ---
Closing Note Patient is resting in bed, at bedside. No complaints of chest pain, no SOB, not in distress. Call light within reach and bed in lowest position.
--- NOTE | 2018-10-15 19:05 | NUR ---
Opening Shift Note Assumed care of patient from day shift RN Bindu. Pt is awake and alert and oriented x4. No S/S of distress/SOB or pain. Safety maintained with bed rails upx2, locked and in lowest position with call arreola within reach. Instructed on POC and to call for assist PRN, will continue to monitor for changes Q1hr and PRN. at bedside.
[2018-10-15] MEDS: ATORVASTATIN 20 MG TAB PO SCH (21:25)
[2018-10-15 21:30] VITALS: BP 91/48
[2018-10-16 05:00] VITALS: BP 125/73
[2018-10-16] MEDS: metroNIDAZOLE 500MG/100ML 100 ML IV SCH (05:32)
[2018-10-16 06:58] LABS: Basophils # (auto) 0 uL; Basophils % (auto) 0.3 % (0.0-2.0); Eosinophils # (auto) 0 uL; Eosinophils % (auto) 0.3 % (0.0-7.0); Hematocrit 41.6 % (41.0-53.0); Hemoglobin 14.1 g/dL (13.5-17.5); Lymphocytes % (auto) 15.3 % (10.0-50.0); Mean Corpuscular Hemoglobin 31.8 pg (28.0-32.0); Mean Corpuscular Hgb Conc. 33.9 g/dL (32.0-36.0); Mean Corpuscular Volume 93.6 fL (80.0-100.0); Monocytes # (auto) 1.4 uL; Monocytes % (auto) 10.8 % (0.0-12.0); Neutrophils # (auto) 9.5 uL; Neutrophils % (auto) 73.3 % (37.0-80.0); Nucleated Red Blood Cells % 0.1 %; Platelet Count (auto) 255 10^3/uL (140-450); Red Blood Cells 4.45 10^6/uL (4.5-5.90); Red Cell Distribution Width 13.4 % (11.8-14.3)
[2018-10-16 07:07] LABS: BUN/Creatinine Ratio 19.5; Calcium 8.5 mg/dL (8.5-10.1); Potassium 3.5 mmol/L (3.5-5.1)
--- NOTE | 2018-10-16 07:30 | NUR ---
Closing Shift Note Endorsed care to day shift RN. Patient resting in bed, no s/s distress.
--- NOTE | 2018-10-16 08:00 | NUR ---
AWAKE ALERT ORIENTED TIMED FOUR DENIES ANY CHAT PAIN OR SHORTNESS OF BREATH AT THIS TIME.
[2018-10-16 08:04] VITALS: BP 128/78
[2018-10-16] MEDS: cefTRIAXone 1GM/50ML D5W 50 ML IV SCH (08:51)
--- NOTE | 2018-10-16 09:20 | NUR ---
PATIENT COMPLAINED OF NAUSEA. HE STATES HE HAD NAUSEA AND BELIEVES THAT IT IS FROM THE ROCEPHIN. HE SAID IT HAPPENED YESTERDAY WELL AND WAS NOT SURE WHAT CAUSED IT BUT TODAY HE IS ABLE TO STATE THAT IT IS FROM THE ROCEPHIN.
--- NOTE | 2018-10-16 09:32 | NUR ---
IV PUFFY AND PAINFUL. PATIENT ASKED ME TO REMOVE IV AND SAID HE DOES NOT WANT TO BE POKED AGAIN. I INFORMED HIM I WOULD NOTIFY HOSPITALIST
[2018-10-16] MEDS ORDERED: NIFEdipine ER 30 MG TAB PO SCH (10:00)
[2018-10-16] MEDS: ASPirin-EC 81 mg tab PO SCH (10:00)
[2018-10-16] MEDS: PANTOPRAZOLE 40 MG TAB PO SCH (10:00)
[2018-10-16] MEDS: CARVEDILOL 12.5 MG TAB PO SCH (10:00)
[2018-10-16] MEDS ORDERED: NIF30XLT PO (10:07)
[2018-10-16] MEDS ORDERED: CAR125T PO (10:07)
[2018-10-16] MEDS ORDERED: ONDA-133 PO (10:07)
[2018-10-16] MEDS ORDERED: ONDANSETRON ODT 4 MG TAB PO ONE (10:15)
[2018-10-16 10:42] VITALS: BP 91/48
--- NOTE | 2018-10-16 11:12 | NUR ---
Discharge instructions given as ordered. Encourage to follow up with PMD as instructed. All questions and concerns addressed. Patient verbalized understanding. Medication reconciliation form completed and copy given to patient. IV removed with catheter intact, pressure dressing applied . Telemetry unit returned to ICU. Patient taken to vehicle via wheelchair with all personal belongings, accompanied by staff and family member. No distress noted at time of departure.
== END 2018-10-16 11:10 | disposition home or self-care (01) | DRG 720 ==
LOC: ER 12:52 → EDBD 12:52 → TELE 14:35 → TELE-EAST 15:28
PROVIDERS: ADMIT Nurse Practitioner Acute Care; ATTEND Internal Medicine
DX: A41.9 Sepsis, unspecified organism (principal); N17.0 Acute kidney failure with tubular necrosis; I50.43 Acute on chronic combined systolic (congestive) and diastolic (congestive) heart failure; I42.0 Dilated cardiomyopathy; K57.32 Diverticulitis of large intestine without perforation or abscess without bleeding; E87.1 Hypo-osmolality and hyponatremia; I13.0 Hypertensive heart and chronic kidney disease with heart failure and stage 1 through stage 4 chronic kidney disease, or unspecified chronic kidney disease; N18.3 Chronic kidney disease, stage 3 (moderate); E87.6 Hypokalemia; E66.9 Obesity, unspecified; E78.5 Hyperlipidemia, unspecified; F12.90 Cannabis use, unspecified, uncomplicated; T46.4X5A Adverse effect of angiotensin-converting-enzyme inhibitors, initial encounter; Z91.14 Patient's other noncompliance with medication regimen; Z79.82 Long term (current) use of aspirin; Z87.891 Personal history of nicotine dependence; Z82.49 Family history of ischemic heart disease and other diseases of the circulatory system; Y92.89 Other specified places as the place of occurrence of the external cause; Z68.32 Body mass index [BMI] 32.0-32.9, adult
CPT/HCPCS: 36415; 71045; 74176; 80048; 80053; 80061; 80307; 81001; 83690; 83735; 83880; 85025; 85610; 85730; 93005; 93306; A6257; G0378; J0696; J2405; J3490; Q0162